=== PATIENT | male | born 1960 | race Caucasian/White ===

== ENCOUNTER 2018-02-07 12:58 | Emergency (ER) | payer BC, OTHER ==
--- NOTE | 2018-02-07 14:07 | ED ---
Bite Injury/Animal - HPI Summary HPI Summary: 57 yr old male with left lateral thigh dog bite. 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 He had long pants on. - History of Current Complaint Stated Complaint: DOG BITE LEFT KNEE Time Seen by Provider: 02/07/18 13:49 - Allergies/Home Medications Allergies/Adverse Reactions: Allergies Allergy/AdvReac Type Severity Reaction Status Date / Time No Known Allergies Allergy Verified 02/07/18 14:17 Home Medications: Home Medications Acarbose 25 mg PO TID AC 02/07/18 [History Confirmed 02/07/18] Aspirin 81 mg CHEW TAB* [Aspirin Low Dose TAB*] 81 mg PO DAILY 02/07/18 [ History Confirmed 02/07/18] Citalopram TAB* [CeleXA TAB*] 20 mg PO DAILY 02/07/18 [History Confirmed ] Lisinopril TAB* [Prinivil TAB*] 5 mg PO DAILY 02/07/18 [History Confirmed ] Lovastatin [Altoprev] 20 mg PO DAILY 02/07/18 [History Confirmed 02/07/18] glipiZIDE TAB* [Glucotrol TAB*] 5 mg PO DAILY 02/07/18 [History Confirmed ] metFORMIN* [Glucophage 500 MG TAB *] 1,000 mg PO 0800,1700 02/07/18 [History Confirmed 02/07/18] PMH/Surg Hx/FS Hx/Imm Hx Infectious Disease History: Denies: Traveled Outside the [place] in Last 30 Days - Family History Known Family History: Positive: None - Social History Occupation: Employed Full-time Review of Systems Constitutional: Negative Positive: Other - dog bite left leg All Other Systems Reviewed And Are Negative: Yes Physical Exam Triage Information Reviewed: Yes Vital Signs Reviewed: Yes Appearance: Positive: Well-Appearing, No Pain Distress Skin: Positive: Other - there are superficial puncture wounds in dog tooth distribution lateral distal left thigh, proximal to knee. Eyes: Positive: EOMI ENT: Positive: Normal ENT inspection Neck: Positive: Nontender Respiratory/Lung Sounds: Positive: Clear to Auscultation, Breath Sounds Present Cardiovascular: Positive: RRR. Negative: Murmur Musculoskeletal: Positive: Strength/ROM Intact, Other - no joint effusion Neurological: Positive: Sensory/Motor Intact, Alert, Oriented to Person Place, Time, CN Intact II-III Psychiatric: Positive: Normal Bite Injury Course/Dx - Course Course Of Treatment: 57 yr old male with superficial dog bite left leg - Diagnoses Provider Diagnosis: Dog bite Discharge - Sign-Out/Discharge Documenting (check all that apply): Patient Departure All imaging exams completed and their final reports reviewed: No Studies - Discharge Plan Condition: Good Disposition: HOME Prescriptions: Amoxicillin/Clavulanate TAB* [Augmentin TAB 875*] 875 mg PO BID #10 tab Patient Education Materials: Animal Bite (ED) Referrals: Melonie Benton MD [Primary Care Provider] - 3 Days - Billing Disposition and Condition Condition: GOOD Disposition: Home
[2018-02-07 14:28] VITALS: BP 129/78
== END 2018-02-07 14:40 | disposition home or self-care (01) ==
LOC: UCCORT 12:58
DX: S71.152A Open bite, left thigh, initial encounter (principal); W54.0XXA Bitten by dog, initial encounter; Y93.89 Activity, other specified; Y92.009 Unspecified place in unspecified non-institutional (private) residence as the place of occurrence of the external cause; Y99.0 Civilian activity done for income or pay
CPT/HCPCS: 99212; G0463

== ENCOUNTER 2018-05-23 13:26 | Emergency (ER) | payer BC, OTHER ==
[2018-05-23 13:43] VITALS: BP 138/91
--- NOTE | 2018-05-23 14:00 | UC ---
Upper Extremity HPI - HPI Summary HPI Summary: left arm pain and tingling x 1 day started this morning as she woke up , pain radiates for left shoulder down to his hand + tingling of 1,2,3 fingers , no weakness no chest pain , no sob , no diaphoresis - History of Current Complaint Chief Complaint: UCUpperExtremity Stated Complaint: LEFT ARM TINGLING Time Seen by Provider: 05/23/18 13:28 Hx Obtained From: Patient Onset/Duration: Gradual Onset, Lasting Days - 1, Still Present Severity Initially: Moderate Severity Currently: Moderate Pain Intensity: 5 Location Of Pain: Is Discrete @ - left arm Character: Aching Aggravating Factor(s): Movement, Lifting, Flexion, Extension Alleviating Factor(s): Nothing - Allergies/Home Medications Allergies/Adverse Reactions: Allergies Allergy/AdvReac Type Severity Reaction Status Date / Time No Known Allergies Allergy Verified 05/23/18 13:44 PMH/Surg Hx/FS Hx/Imm Hx - Surgical History Surgical History: Yes Surgery Procedure, Year, and Place: TONSILLECTOMY - Family History Known Family History: Positive: None - Social History Alcohol Use: None Substance Use Type: None Smoking Status (MU): Former Smoker - Immunization History Most Recent Tetanus Shot: 2014 Review of Systems All Other Systems Reviewed And Are Negative: Yes Constitutional: Positive: Negative Skin: Positive: Negative Eyes: Positive: Negative ENT: Positive: Negative Respiratory: Positive: Negative Cardiovascular: Negative: Palpitations, Chest Pain Is Patient Immunocompromised?: No Physical Exam Triage Information Reviewed: Yes Appearance: Well-Appearing, No Pain Distress, Well-Nourished Vital Signs: Initial Vital Signs Temp 100.1 F 05/23/18 13:37 Pulse 63 05/23/18 13:37 Resp 20 05/23/18 13:37 BP 138/91 05/23/18 13:37 Pulse Ox 99 05/23/18 13:37 Vital Signs Reviewed: Yes Eye Exam: Normal Eyes: Positive: Conjunctiva Clear ENT: Positive: Normal ENT inspection, Hearing grossly normal, Pharynx normal Neck: Positive: Supple, Nontender, No Lymphadenopathy Respiratory: Positive: Chest non-tender, Lungs clear, Normal breath sounds Cardiovascular: Positive: RRR, No Murmur, Pulses Normal Musculoskeletal: Positive: Strength Intact, ROM Intact, No Edema, Other: - left arm : no swelling, no tenderness, good ROM UC Physical Exam Vital Signs On Initial Exam: Initial Vitals Temp Pulse Resp BP Pulse Ox 100.1 F 63 20 138/91 99 05/23/18 13:37 05/23/18 13:37 05/23/18 13:37 05/23/18 13:37 05/23/18 13:37 - Hand Wrist Exam Exam: Positive: Phalen's Maneuver, Negative: Tinel's Sign, Left: Tinel's Sign, Phalen's Maneuver Diagnostics - EKG Cardiac Rate: Other Rate - left anterior fascicular block Cardiac Rhythm: Sinus: Normal Ectopy: None ST Segment: Normal Upper Extremity Course/Dx - Differential Dx/Diagnosis Provider Diagnosis: CTS (carpal tunnel syndrome) Discharge - Sign-Out/Discharge Documenting (check all that apply): Patient Departure All imaging exams completed and their final reports reviewed: No Studies - Discharge Plan Condition: Stable Disposition: HOME Prescriptions: predniSONE TAB* [Deltasone 20 MG TAB*] 40 mg PO DAILY #10 tab Patient Education Materials: Thoracic Outlet Syndrome (ED), Paresthesia (ED) Referrals: Melonie Benton MD [Primary Care Provider] - 7 Days - Billing Disposition and Condition Condition: STABLE Disposition: Home
== END 2018-05-23 14:07 | disposition home or self-care (01) ==
LOC: UCCORT 13:26
DX: G56.02 Carpal tunnel syndrome, left upper limb (principal); Z87.891 Personal history of nicotine dependence
CPT/HCPCS: 93005; 99211; G0463

== ENCOUNTER 2018-05-25 08:03 | Emergency (ER) | payer BC ==
[2018-05-25 08:26] VITALS: BP 148/85
--- NOTE | 2018-05-25 09:09 | UC ---
Shoulder Pain HPI - HPI Summary HPI Summary: The patient is a 57-year-old male that presents here with a 3 day history of left shoulder pain. He notes the pain when he awoke. He is right handed. Initially he had painful left hand paresthesias. He was seen here 2 days ago and had an EKG performed which was negative. Since then his pain is worsened. He has pain of the entire left arm. He is unable to abduction to his left shoulder. He has a remote history of a left elbow injury. He did not seek medical attention for that injury. Today his left elbow hurts and the pain is worse with any movement of it. He is most comfortable with it held at 90 flexion. Currently he has severe paresthesias of his left thumb index and middle finger. His left index finger is the most numb. He denies any neck pain he denies any headache and denies any chest pain or shortness of breath. Diabetic. On prednisone and has had no relief from it - History of Current Complaint Chief Complaint: UCUpperExtremity Stated Complaint: RECHECK LEFT ARM NUMBNESS AND PAIN Time Seen by Provider: 05/25/18 08:29 Hx Obtained From: Patient Onset/Duration: Gradual Onset, Lasting Days Timing: Constant Severity Initially: Moderate Severity Currently: Severe Pain Intensity: 7 Pain Scale Used: 0-10 Numeric Character: Aching, Throbbing, Spasmodic Aggravating Factor(s): Lifting, Flexion, Internal Rotation, External Rotation Alleviating Factor(s): Nothing Associated Signs And Symptoms: Positive: Weakness - due to pain, Numbness/ Tingling Related History: Dominant Hand Right - Allergies/Home Medications Allergies/Adverse Reactions: Allergies Allergy/AdvReac Type Severity Reaction Status Date / Time No Known Allergies Allergy Verified 05/25/18 08:26 Home Medications: Home Medications Acetaminophen [Acetaminophen Extra Strength] 1,000 mg PO Q6H PRN 05/25/18 [ History Confirmed 05/25/18] PMH/Surg Hx/FS Hx/Imm Hx Previously Healthy: Yes Endocrine History: Diabetes Cardiovascular History: Hypertension - Surgical History Surgical History: Yes Surgery Procedure, Year, and Place: TONSILLECTOMY - Family History Known Family History: Positive: Hypertension - Social History Alcohol Use: None Substance Use Type: None Smoking Status (MU): Former Smoker - Immunization History Most Recent Tetanus Shot: 2014 Review of Systems All Other Systems Reviewed And Are Negative: Yes Constitutional: Positive: Negative Skin: Positive: Negative Eyes: Positive: Negative ENT: Positive: Negative Respiratory: Positive: Negative Cardiovascular: Positive: Negative Gastrointestinal: Positive: Negative Genitourinary: Positive: Negative Motor: Positive: Negative Neurovascular: Positive: Negative Musculoskeletal: Positive: Arthralgia Neurological: Positive: Paresthesia Psychological: Positive: Negative Physical Exam Triage Information Reviewed: Yes Appearance: Well-Appearing, Well-Nourished, Pain Distress Vital Signs: Initial Vital Signs Temp 98.2 F 05/25/18 08:16 Pulse 58 05/25/18 08:16 Resp 16 05/25/18 08:16 BP 148/85 05/25/18 08:16 Pulse Ox 99 05/25/18 08:16 Vital Signs Reviewed: Yes Eyes: Positive: Conjunctiva Clear ENT: Positive: Hearing grossly normal. Negative: Nasal congestion, Nasal drainage, Tonsillar swelling, Tonsillar exudate, Muffled voice, Hoarse voice Dental: Negative: Abscess @ Neck: Positive: Supple, Other: - pain when turning to left Respiratory: Positive: Lungs clear, Normal breath sounds, No respiratory distress, No accessory muscle use Cardiovascular: Positive: RRR, No Murmur, Pulses Normal Musculoskeletal: Positive: Other: - unable to abduct left shoulder, pain with int and ext rotation and both limited left elbow pain with full extension (-) phalen's sign. Negative: Strength Intact, ROM Intact Neurological: Positive: Alert, Muscle Tone Normal, Other: - good cap refill normal gait Skin Exam: Normal Diagnostics - Radiology No standard instances Radiology Interpretation Completed By: Radiologist Summary of Radiographic Findings: DEGENERATIVE DISC DISEASE AND OSTEOARTHRITIS MOST PRONOUNCED AT C4-C5, C5-C6 AND C6-C7. AC joint DJD. FB left elbow Shoulder Course/Dx - Differential Dx/Diagnosis Provider Diagnosis: Cervical radiculopathy, Other cervical disc degeneration at C4-C5 level, Other cervical disc degeneration at C5-C6 level, Other cervical disc degeneration at C6-C7 level Discharge - Sign-Out/Discharge Documenting (check all that apply): Patient Departure All imaging exams completed and their final reports reviewed: Yes - Discharge Plan Condition: Stable Disposition: HOME Prescriptions: HYDROcodone/ACETAMIN 5-325 MG* [[place] 5-325 TAB*] 1 tab PO Q4H PRN #15 tab MDD 6 PRN Reason: Pain - Severe Patient Education Materials: Cervical Radiculopathy (ED), Degenerative Disc Disease (ED) Forms: *Work Release Referrals: Melonie Benton MD [Primary Care Provider] - As Soon As Possible Additional Instructions: don't take tylenol with the narcotic Opioid-containing medications can cause drowsiness and sedation. You t should not drive or operate machinery or similar activities while taking this medication. Opioids can also cause a positive drug screen, and can be habit- forming. You should follow the instructions exactly and not take any extra medication. Opioid medications should be stored in a secure manner to avoid diversion or theft. You should not drink alcohol while taking these medications see your MD first available appt TO ER for worsening symptoms - Billing Disposition and Condition Condition: STABLE Disposition: Home
[2018-05-25] MEDS ORDERED: HYDROcodone/ACETAMIN 5-325 MG* 1 TAB PO ONE (09:19)
== END 2018-05-25 10:05 | disposition home or self-care (01) ==
LOC: UCCORT 08:03
DX: M54.12 Radiculopathy, cervical region (principal); M50.321 Other cervical disc degeneration at C4-C5 level; Z87.891 Personal history of nicotine dependence
CPT/HCPCS: 72050; 99212; G0463

== ENCOUNTER 2018-07-28 17:48 | Emergency (ER) | payer BC ==
[2018-07-28 19:24] VITALS: BP 137/86
--- NOTE | 2018-07-28 19:49 | UC ---
Cardiac HPI - HPI Summary HPI Summary: 57-year-old male comes in with a chief complaint of chest pain. This started 3 days ago when he was moving ladders. The pains in the front of the chest and also limited to the left. It's worse with taking a deep breath or certain twists and turns. Little hard to breathe. Not nauseous not sweaty. No pedal edema no calf tenderness no history of DVT or pulmonary embolus. No upper respiratory tract infection symptoms. No abdominal pain. He has not taken any medicine for the pain. Is have a history of hypertension and hypercholesterolemia. Patient denies any rash. - History of Current Complaint Chief Complaint: UCRespiratory Stated Complaint: COUGH,CONGESTION Time Seen by Provider: 07/28/18 19:39 Pain Intensity: 2 - Allergy/Home Medications Allergies/Adverse Reactions: Allergies Allergy/AdvReac Type Severity Reaction Status Date / Time No Known Allergies Allergy Verified 05/25/18 08:26 Home Medications: Home Medications Gabapentin 600 mg PO BID 07/28/18 [History Confirmed 07/28/18] PMH/Surg Hx/FS Hx/Imm Hx Previously Healthy: Yes Endocrine History: Dyslipidemia Cardiovascular History: Hypertension - Surgical History Surgical History: Yes Surgery Procedure, Year, and Place: TONSILLECTOMY - Family History Known Family History: Positive: Hypertension - Social History Alcohol Use: None Substance Use Type: None Smoking Status (MU): Former Smoker Type: Pipe Amount Used/How Often: 2 years When Did the Patient Quit Smoking/Using Tobacco: 1981 - Immunization History Most Recent Tetanus Shot: 2014 Review of Systems All Other Systems Reviewed And Are Negative: Yes Constitutional: Positive: Negative Skin: Positive: Negative Eyes: Positive: Negative ENT: Positive: Negative Respiratory: Positive: Other - SEE HPI Cardiovascular: Positive: Chest Pain Gastrointestinal: Positive: Negative Motor: Positive: Negative Neurovascular: Positive: Negative Musculoskeletal: Positive: Negative Neurological: Positive: Negative Psychological: Positive: Negative Is Patient Immunocompromised?: No Physical Exam Triage Information Reviewed: Yes Appearance: Well-Appearing, Well-Nourished, Pain Distress - WITH DEEP BREATHING AND CHEST ROM Vital Signs: Initial Vital Signs Temp 98.4 F 07/28/18 19:18 Pulse 70 07/28/18 19:18 Resp 16 07/28/18 19:18 BP 137/86 07/28/18 19:18 Pulse Ox 100 07/28/18 19:18 Vital Signs Reviewed: Yes Eye Exam: Normal Eyes: Positive: Conjunctiva Clear Neck exam: Normal Neck: Positive: Supple, Nontender Respiratory: Positive: Lungs clear, Normal breath sounds, No respiratory distress, Other: - Chest is nontender to palpation Cardiovascular: Positive: RRR Abdominal Exam: Normal Abdomen Description: Positive: Nontender, Soft Musculoskeletal Exam: Normal Musculoskeletal: Positive: Strength Intact, ROM Intact, No Edema, Other: - NO CALF TENDERNESS Neurological Exam: Normal Neurological: Positive: Alert, Muscle Tone Normal Psychological Exam: Normal Psychological: Positive: Normal Response To Family, Age Appropriate Behavior Skin Exam: Normal - Assessment/Plan Course Of Treatment: I reviewed the chest x-ray with the patient and his . I do not see any acute disease process radiologist reading is pending. Pain is worse with movement and deep breaths. No calf pain or swelling no history of DVT or pulmonary embolus. Patient reports the pain started when he was moving a ladder. I did discuss signs and symptoms of a heart attack and pulmonary emboli and let him know to go the emergency department if he doesn't improve or if his symptoms worsen or he has any other questions or concerns. Doing a prescription for hydrocodone here and he has ibuprofen at home also will send a prescription for an incentive spirometer. Follow-up primary care doctor. Reevaluation sooner if worse or any questions or concerns. - Clinical Impression Provider Diagnosis: Chest pain, Chest wall pain Discharge - Sign-Out/Discharge Documenting (check all that apply): Patient Departure All imaging exams completed and their final reports reviewed: No - Discharge Plan Condition: Stable Disposition: HOME Patient Education Materials: Chest Pain (ED), Chest Wall Pain (ED) Referrals: Melonie Benton MD [Primary Care Provider] - Additional Instructions: FOLLOW UP WITH YOUR DOCTOR IF NOT COMPLETELY IMPROVED. GO TO THE EMERGENCY DEPARTMENT FOR ANY WORSENING OF YOUR CONDITION; PAIN, SHORTNESS OF BREATH, FEVER, YOU FEEL ILL OR QUESTIONS OR CONCERNS. - Billing Disposition and Condition Condition: STABLE Disposition: Home
[2018-07-28] MEDS ORDERED: HYDROcodone/ACETAMIN 5-325 MG* 1 TAB PO ONE (20:42)
--- NOTE | 2018-07-29 07:56 | UC ---
- Progress Note Progress Note: chest xray : IMPRESSION: NO ACTIVE CARDIOPULMONARY DISEASE. Course/Dx - Diagnoses Provider Diagnoses: Chest pain, Chest wall pain Discharge - Sign-Out/Discharge Documenting (check all that apply): Patient Departure All imaging exams completed and their final reports reviewed: Yes - Discharge Plan Condition: Stable Disposition: HOME Prescriptions: HYDROcodone/ACETAMIN 5-325 MG* [[place] 5-325 TAB*] 1 tab PO Q4H PRN #20 tab MDD 6 PRN Reason: Pain Patient Education Materials: Chest Pain (ED), Chest Wall Pain (ED) Forms: *Work Release Referrals: Melonie Benton MD [Primary Care Provider] - Additional Instructions: FOLLOW UP WITH YOUR DOCTOR IF NOT COMPLETELY IMPROVED. GO TO THE EMERGENCY DEPARTMENT FOR ANY WORSENING OF YOUR CONDITION; PAIN, SHORTNESS OF BREATH, FEVER, YOU FEEL ILL OR QUESTIONS OR CONCERNS. - Billing Disposition and Condition Condition: STABLE Disposition: Home
== END 2018-07-28 20:57 | disposition home or self-care (01) ==
LOC: UCCORT 17:48
DX: R07.89 Other chest pain (principal); E11.9 Type 2 diabetes mellitus without complications; F17.210 Nicotine dependence, cigarettes, uncomplicated
CPT/HCPCS: 71046; 99212; G0463